=== PATIENT | female | born 1985 | race Caucasian/White ===

== ENCOUNTER 2019-03-29 05:00 | Inpatient (IN) | payer OTHER ==
[2019-03-29] MEDS ORDERED: ELECTROLYTE-148 SOLN 500 ML IV ONE (05:30)
[2019-03-29] MEDS: ELECTROLYTE-148 SOLN 1,000 ML IV SCH (06:00)
[2019-03-29 06:22] VITALS: BMI 26.0
[2019-03-29] MEDS ORDERED: CITRIC ACID/SODIUM CITRATE 30 ML UNIT-DOSE CUP PO ONE (06:45)
--- NOTE | 2019-03-29 07:44 | HP ---
Past Medical History - Primary Care Physician PCP:: Anny Parish - Admission Chief Complaint: 34yo P0 @ 39.3 wks with IVF , declines IOL, for elective C/section; normal FM, no VB, no LOF, no contructions. History of Present Illness: 1. Late transfer of care from [place] - all PNL available, normal 2. GBS negative History Source: Patient, Significant Other Limitations to Obtaining History: No Limitations - Past Medical History Reproductive: Yes: Other (Infertility, multiple IVF cycles) ...: 1 ...Para: 0 ...Term: 0 ...: 0 ...Spon : 0 ...Induced : 0 ...Multiple Gestation: 0 ... Weeks Gestation by Dates: 39.3 ...EDC by Dates: 04/02/19 - Past Surgical History Past Surgical History: Yes: None Hx Myomectomy: No Hx Transabdominal Cerclage: No - Smoking History Smoking history: Never smoked Have you smoked in the past 12 months: No - Alcohol/Substance Use Hx Alcohol Use: No - Social History Usual Living Arrangement: Yes: With Spouse Do you think of yourself as: Straight/Heterosexual Home Medications - Allergies Allergies/Adverse Reactions: Allergies Allergy/AdvReac Type Severity Reaction Status Date / Time No Known Allergies Allergy Verified 03/29/19 05:48 - Home Medications Home Medications: Ambulatory Orders Vitamins (Sjr) - 1 tab PO DAILY 03/29/19 Review of Systems - Review of Systems Constitutional: reports: No Symptoms Eyes: reports: No Symptoms HENT: reports: No Symptoms Neck: reports: No Symptoms Cardiovascular: reports: No Symptoms Respiratory: reports: No Symptoms Gastrointestinal: reports: No Symptoms Genitourinary: reports: No Symptoms Breasts: reports: No Symptoms Reported Musculoskeletal: reports: No Symptoms Integumentary: reports: No Symptoms Neurological: reports: No Symptoms Endocrine: reports: No Symptoms Hematology/Lymphatic: reports: No Symptoms Psychiatric: reports: No Symptoms Pain Intensity: 0 Physical Exam - Maternity Vital Signs: Vital Signs Temperature 97.9 F 03/29/19 06:00 Pulse Rate 96 H 03/29/19 06:00 Respiratory Rate 20 03/29/19 06:00 Blood Pressure 128/77 03/29/19 06:00 O2 Sat by Pulse Oximetry (%) Constitutional: Yes: Well Nourished, No Distress, Calm Eyes: Yes: WNL, Conjunctiva Clear, EOM Intact HENT: Yes: WNL, Atraumatic, Normocephalic Neck: Yes: WNL, Supple, Trachea Midline Cardiovascular: Yes: WNL, Regular Rate and Rhythm Lungs: Clear to auscultation Breast(s): Yes: WNL - Abdominal Exam/OB Fundal Height: 39 Number of Fetuses: Single Presentation: Vertex Contractions: No Monitor Mode: External Heart Rate (range): 140s Heart Rate Location: Midline Category: I Accelerations: Uniform Decelerations: None - Vaginal Exam/OB Vaginal Bleediing: No Speculum Exam: No Dilatation (cm): closed Effacement (%): long Amniotic Membrane Status: Intact Presentation: Vertex/Position Station: -3 - Physical Exam Musculoskeletal: Yes: WNL Extremities: Yes: WNL Edema: No Integumentary: Yes: WNL Deep Tendon Reflex Grade: Normal +2 ...Motor Strength: WNL Psychiatric: Yes: WNL, Alert, Oriented Assessment/Plan 34yo P0 @39.3weeks, IVF not in labor declines IOL for Elective LST c/section All risks, benefits and alternatives discussed with patient Admit to L&D NPO, IVF Anesthesia and Neonatalogy informed
[2019-03-29] MEDS ORDERED: morphine SULFATE/PF 0.5 MG/ML (2cc Syringe - QUVA) ONE (07:46)
[2019-03-29] MEDS ORDERED: OXYTOCIN 10 UNITS/ML VIAL ONE ×2 (08:25→08:41)
[2019-03-29] MEDS ORDERED: PROPOFOL 20 ML ONE (08:26)
[2019-03-29] MEDS ORDERED: LIDOCAINE HCL 1% PRESERVATIVE FREE - 30ML VIAL ONE (08:26)
[2019-03-29] MEDS ORDERED: SUCCINYLCHOLINE CHLORIDE 200 MG/10 ML SYRINGE ONE (08:26)
[2019-03-29] MEDS ORDERED: MIDAZOLAM HCL 2 MG/2 ML SINGLE DOSE VIAL ONE (08:30)
[2019-03-29] MEDS ORDERED: KETAMINE HCL 500 MG/10 ML VIAL ONE (08:30)
--- NOTE | 2019-03-29 09:41 | OP ---
Operative Note - Note: Operative Date: 03/29/19 Pre-Operative Diagnosis: 34yo P0 @ 39.3wks. IVF . Elective c/ section. Declined IOL Operation: Primary LST c/section Findings: Viable Male APGARs 8/9, 8.13lb Normal bilateral tubes and ovaries Post-Operative Diagnosis: Same as Pre-op Surgeon: Anny Parish Associate Java Developer: Sg Mcnamara Anesthesiologist/SEVERITY OF ILLNESS COORDINATOR: April Balbuena Anesthesia: General, Spinal Estimated Blood Loss (mls): 700 Drains, Volume Out (mls): 200 Fluid Volume Replaced (mls): 1,500 Operative Report Dictated: Yes
[2019-03-29] MEDS ORDERED: diphenhydrAMINE HCL 25 MG CAPSULE (FP) PO PRN (09:43)
[2019-03-29] MEDS ORDERED: WITCH HAZEL 50% (TUCKS) 40 PAD/JAR PAD TP PRN (09:43)
[2019-03-29] MEDS ORDERED: BENZOCAINE 28 GM HEMORRHOIDAL OINTMENT PR PRN (09:43)
[2019-03-29] MEDS ORDERED: BENZOCAINE 20% 57 GM BOTTLE TP PRN (09:43)
[2019-03-29] MEDS ORDERED: oxyCODONE HCL 5 MG TABLET PO PRN ×2 (09:43)
[2019-03-29] MEDS ORDERED: IBUPROFEN 800 MG/8 ML IJ IVPB PRN (09:43)
[2019-03-29] MEDS ORDERED: METHYLERGONOVINE MALEATE 0.2 MG/1 ML AMP IM PRN (09:43)
[2019-03-29] MEDS ORDERED: SIMETHICONE 80 MG TAB.CHEW (FP) PO PRN (09:43)
--- NOTE | 2019-03-29 09:43 | PN ---
Delivery - Delivery Section: Primary Type of Anesthesia: Spinal, General Episiotomy/Laceration: None EBL (cc): 700 Delivery, Single - Stages of Labor Date of Delivery: 03/29/19 Time of Delivery: 08:40 Date Placenta Delivered: 03/29/19 Time Placenta Delivered: :41 Placenta: Yes: Expressed - Condition of Infant Glass Block Bender/Learning Development Specialist Present: Yes Name: Melvin Claros Gender: Male Weight: 8 lb 13 oz Position: Right, OT Total Hours ROM (Hrs/Mins): 5min - 1 Minute Total Score: 8 5 Minutes Total Score: 9 - [place] Feeding Plan Initial Plan: Exclusive throughout hospitalization Remarks - Remarks Remarks: Vaccuum used x 1 application to assist head delivery Shoulders delivered without difficulty Placenta expressed intact All layers closed without difficulty
[2019-03-29] MEDS ORDERED: OXYTOCIN 20 UNITS in 0.9% NS 20 UNIT/1,000 ML INFUS.BAG IV SCH (09:45)
[2019-03-29] MEDS ORDERED: IBUPROFEN 800 MG/8 ML IJ IVPB ONE (10:34)
[2019-03-29] MEDS ORDERED: ONDANSETRON 4 MG/2 ML VIAL ONE (10:40)
[2019-03-29] MEDS: ONDANSETRON 4 MG/2 ML VIAL IVPUSH PRN ×3 (10:40→16:26)
[2019-03-29] MEDS: CEFAZOLIN 1 GM/D5W 1 GM/50 ML BAG IVPB SCH (18:19)
[2019-03-30] MEDS: CEFAZOLIN 1 GM/D5W 1 GM/50 ML BAG IVPB SCH (01:23)
[2019-03-30] MEDS: DEXTROSE 5%-LACTATED RINGERS 1,000 ML IV SCH ×2 (01:24→22:45)
[2019-03-30] MEDS: IBUPROFEN 600 MG TABLET (FP) PO PRN ×2 (06:29→18:29)
[2019-03-30 08:07] LABS: BASO % 0.6 % (0-2.0); EOS % 0.3 % (0-4.5); HEMATOCRIT 28.2 % (32.4-45.2); HEMOGLOBIN 8.7 GM/dL (10.7-15.3); LYMPH % 13.9 % (8-40); MCH 22.4 pg (25.7-33.7); MCHC 30.9 g/dl (32.0-36.0); MEAN CELL VOLUME 72.4 fl (80-96); MEAN PLT VOLUME 9.1 fl (7.5-11.1); MONO % 6.6 % (3.8-10.2); NEUT % 78.6 % (42.8-82.8); PLATELET COUNT 290 K/MM3 (134-434); RBC 3.89 M/mm3 (3.60-5.2); RDW 15.2 % (11.6-15.6); WHITE BLOOD COUNT 14.1 K/mm3 (4.0-10.0)
--- NOTE | 2019-03-30 08:49 | PN ---
Progress Note (short form) - Note Progress Note: 34 F s/p spinal + Duramorph for C/S. pt feels welll. no comps. good result of anesthetic care.
[2019-03-30] MEDS ORDERED: BISACODYL 10 MG SUPP.RECT RC PRN (09:43)
--- NOTE | 2019-03-30 21:43 | PN ---
Post Progress Note - Subjective Subjective: Patient without acute complaints. Reports tolerating oral intake without nausea or vomiting. Ambulating without dizziness. Denies fevers or chills. Pain well controlled with oral pain medication. with supplementation Passing flatus. Post Day: 1 Type of Delivery: Primary C/S Vital Signs: Vital Signs Temperature 98.5 F 03/30/19 08:50 Pulse Rate 84 03/30/19 08:50 Respiratory Rate 18 03/30/19 10:00 Blood Pressure 112/68 03/30/19 08:50 O2 Sat by Pulse Oximetry (%) 100 03/29/19 11:00 Breast Exam: Yes: Soft Uterus: Yes: Fundus Firm, Fundus below umbilicus Incision: Yes: Sutures intact. No: Redness, Oozing Abdomen/GI: Yes: Abdomen soft, Abdominal Distention (mild soft), Tender (mild incisional), Passing flatus, Tolerating PO Lochia: Yes: Rubra Lochia, amount: Small Extremities: Yes: Calves non-tender, Edema (trace) Activity: Ambulating - Labs Labs: CBC WBC 14.1 K/mm3 (4.0-10.0) H 03/30/19 06:58 RBC 3.89 M/mm3 (3.60-5.2) 03/30/19 06:58 Hgb 8.7 GM/dL (10.7-15.3) L 03/30/19 06:58 Hct 28.2 % (32.4-45.2) L D 03/30/19 06:58 MCV 72.4 fl (80-96) L 03/30/19 06:58 MCH 22.4 pg (25.7-33.7) L 03/30/19 06:58 MCHC 30.9 g/dl (32.0-36.0) L 03/30/19 06:58 RDW 15.2 % (11.6-15.6) 03/30/19 06:58 Plt Count 290 K/MM3 (134-434) 03/30/19 06:58 MPV 9.1 fl (7.5-11.1) 03/30/19 06:58 Absolute Neuts (auto) 11.1 K/mm3 (1.5-8.0) H 03/30/19 06:58 Neutrophils % 78.6 % (42.8-82.8) 03/30/19 06:58 Lymphocytes % 13.9 % (8-40) D 03/30/19 06:58 Monocytes % 6.6 % (3.8-10.2) 03/30/19 06:58 Eosinophils % 0.3 % (0-4.5) 03/30/19 06:58 Basophils % 0.6 % (0-2.0) 03/30/19 06:58 Nucleated RBC % 0 % (0-0) 03/30/19 06:58 Assessment/Plan 34 yo POD # 1 s/p primary CD, afebrile, vital signs stable, doing well 1. Continue routine postoperative care. 2. CBC with mild asymptomatic anemia, iron started, precautions given 3. Rh positive status, no rhogam indicated. 4. Encourage ambulation and incentive spirometer use 5. Continue oral pain medication 6. support given 7. Anticipate discharge home postoperative day #3 or #4
[2019-03-30] MEDS: ELECTROLYTE-148 SOLN 1,000 ML IV SCH ×2 (22:45)
--- NOTE | 2019-03-31 07:14 | PN ---
Post Progress Note - Subjective Subjective: Patient without acute complaints. Reports tolerating oral intake without nausea or vomiting. Ambulating without dizziness. Denies fevers or chills. Pain well controlled with oral pain medication. Passing flatus. Post Day: 2 Type of Delivery: Primary C/S Vital Signs: Vital Signs Temperature 98.4 F 03/30/19 22:00 Pulse Rate 81 03/30/19 22:00 Respiratory Rate 18 03/30/19 22:00 Blood Pressure 111/58 L 03/30/19 22:00 O2 Sat by Pulse Oximetry (%) 100 03/29/19 11:00 Breast Exam: Yes: Soft Uterus: Yes: Fundus Firm Incision: Yes: Sutures intact. No: Redness, Oozing Abdomen/GI: Yes: Abdomen soft, Tender (mild incisional), Passing flatus, Tolerating PO. No: Abdominal Distention Lochia: Yes: Rubra Lochia, amount: Moderate Extremities: Yes: Calves non-tender. No: Edema Activity: Ambulating - Labs Labs: CBC WBC 14.1 K/mm3 (4.0-10.0) H 03/30/19 06:58 RBC 3.89 M/mm3 (3.60-5.2) 03/30/19 06:58 Hgb 8.7 GM/dL (10.7-15.3) L 03/30/19 06:58 Hct 28.2 % (32.4-45.2) L D 03/30/19 06:58 MCV 72.4 fl (80-96) L 03/30/19 06:58 MCH 22.4 pg (25.7-33.7) L 03/30/19 06:58 MCHC 30.9 g/dl (32.0-36.0) L 03/30/19 06:58 RDW 15.2 % (11.6-15.6) 03/30/19 06:58 Plt Count 290 K/MM3 (134-434) 03/30/19 06:58 MPV 9.1 fl (7.5-11.1) 03/30/19 06:58 Absolute Neuts (auto) 11.1 K/mm3 (1.5-8.0) H 03/30/19 06:58 Neutrophils % 78.6 % (42.8-82.8) 03/30/19 06:58 Lymphocytes % 13.9 % (8-40) D 03/30/19 06:58 Monocytes % 6.6 % (3.8-10.2) 03/30/19 06:58 Eosinophils % 0.3 % (0-4.5) 03/30/19 06:58 Basophils % 0.6 % (0-2.0) 03/30/19 06:58 Nucleated RBC % 0 % (0-0) 03/30/19 06:58 Assessment/Plan 34 yo POD # 1 s/p primary CD, afebrile, vital signs stable, doing well 1. Continue routine postoperative care. 2. Encourage ambulation and incentive spirometer use 3. Continue oral pain medication 4. Anticipate discharge home postoperative day #3 or #4
[2019-03-31] MEDS: FERROUS SO4 325 MG TABLET (FP) PO SCH ×2 (08:07→17:22)
[2019-03-31] MEDS ORDERED: ACETAMINOPHEN 325 MG TABLET (FP) PO PRN (12:22)
[2019-03-31] MEDS ORDERED: SENNOSIDES/DOCUSATE COMBO (SENNA PLUS) TABLET (UD) PO PRN (22:00)
[2019-04-01 08:07] LABS: BASO % 1.3 % (0-2.0); EOS % 3.1 % (0-4.5); HEMATOCRIT 25.8 % (32.4-45.2); HEMOGLOBIN 8.4 GM/dL (10.7-15.3); LYMPH % 22.5 % (8-40); MCH 23.3 pg (25.7-33.7); MCHC 32.4 g/dl (32.0-36.0); MEAN CELL VOLUME 71.8 fl (80-96); MEAN PLT VOLUME 8.1 fl (7.5-11.1); NEUT % 65.1 % (42.8-82.8); PLATELET COUNT 350 K/MM3 (134-434); RDW 15.6 % (11.6-15.6); WHITE BLOOD COUNT 10.6 K/mm3 (4.0-10.0)
[2019-04-01] MEDS: FERROUS SO4 325 MG TABLET (FP) PO SCH ×2 (09:01→18:05)
[2019-04-01 10:30] VITALS: BP 125/72; PULSE 85; TEMP 98.1
--- NOTE | 2019-04-01 15:03 | DS ---
Physical Exam-SENIOR PHP SOFTWARE DEVELOPER Vital Signs: Vital Signs Temperature 98.1 F 04/01/19 10:00 Pulse Rate 85 04/01/19 10:00 Respiratory Rate 18 04/01/19 10:00 Blood Pressure 125/72 04/01/19 10:00 O2 Sat by Pulse Oximetry (%) 100 03/29/19 11:00 Labs: CBC, BMP 04/01/19 04:35 Delivery - Delivery Section: Primary Type of Anesthesia: Spinal, General Episiotomy/Laceration: None EBL (cc): 700 Delivery, Single - Stages of Labor Date of Delivery: 03/29/19 Time of Delivery: 08:40 Time Placenta Delivered: 08:41 Placenta: Yes: Expressed - Condition of Infant Carpet Cleaning Technician/Cyberathlete Present: Yes Name: Melvin Claros Infant Gender: Male Weight: 8 lb 13 oz Position: Right, OT Total Hours ROM (Hrs/Mins): 5min - 1 Minute Total Score: 8 5 Minutes Total Score: 9 - Feeding Plan Initial Plan: Exclusive throughout hospitalization Discharge Summary Reason For Visit: ADMIT C/SECTION - Instructions - Home Medications Comprehensive Discharge Medication List: Ambulatory Orders Vitamins (Sjr) - 1 tab PO DAILY 03/29/19
[2019-04-01] MEDS: IBUPROFEN 600 MG TABLET (FP) PO PRN (15:30)
--- NOTE | 2019-04-01 20:58 | OP ---
DATE OF OPERATION: 03/29/2019 PREOPERATIVE DIAGNOSIS: A 34-year-old brought here at 39 and 3 weeks for elective section. POSTOPERATIVE DIAGNOSIS: A 34-year-old brought here at 39 and 3 weeks for elective section. PROCEDURE: Primary low segment transverse section. SURGEON: Anny Parish MD. ANESTHESIOLOGIST: Sg Mcnamara MD. ANESTHESIOLOGIST: April Balbuena MD. DESCRIPTION OF OPERATIVE PROCEDURE: After assuring informed consent, patient was brought to the operating room where spinal anesthesia was administered. Abdomen was prepped and draped in sterile fashion. The anesthesia was not sufficient, so ketamine IV anesthetic needed to be administered. Pfannenstiel skin incision was created with the scalpel, and extended bilaterally with Bovie cautery. Fascia was dissected off the rectus abdominis muscle with the Bovie cautery. Fascia was incised and dissected off the rectus abdominis muscle. The rectus abdominis muscle was split in the midline, peritoneum was identified, tented with Kellys and opened with Metzenbaum scissors with good visualization of underlying organs. Peritoneum was stretched, bladder was retracted with low edge of the [place]. Gutters were packed and Metzenbaum scissors were used to create the bladder flap. Bladder was retracted with the Heavenly retractor. Then a low uterine segment incision was created with the scalpel and extended bilaterally with bandage scissors. 's head was difficult to deliver, so vacuum was applied to the vertex and was baby was delivered atraumatically. Shoulders were delivered without any difficulty. Cord was clamped and cut, and male infant was handed to the waiting pediatricians. Baby was 8 pounds 13 ounces, 21 inches. Placenta was expressed manually and handed for pathology. Uterus was cleared of clots and debris and repaired with 0 Biosyn in running, locking fashion. A 2nd imbricating layer was created with 0 Biosyn. Abdomen was irrigated and cleared of clots and debris. Lap pads were removed. Sponge and instrument count was correct x2. Peritoneum was repaired with 0 Biosyn. Muscle was reapproximated at the midline. Fascia was closed with 0 Vicryl. Subcutaneous tissue was reapproximated, and then skin was closed with 4 Biosyn V-Loc stitch. Excellent hemostasis was achieved. Estimated blood loss was 700 mL. Patient received 1300 mg of IV fluids, and had 200 mL of urine output. Patient tolerated procedure well and was brought to the recovery room in stable condition. Sponge and instrument count was correct x2 . Brian [id number]
--- NOTE | 2019-04-04 12:06 | PATH ---
Surgical Pathology Report Patient Name: ZOFIA BELL Med. Rec. #: [id number] /Age/Gender: 1985 (Age: 34) / F Account: [id number] Location: [facility] OBS/MANAGER NON PROFIT Taken: 03/29/2019 Received: 04/01/2019 Reported: 04/04/2019 Physicians: Anny Parish M.D. Specimen(s) Received PLACENTA Clinical History at 39.3 weeks Final Diagnosis PLACENTA, SECTION: 557 G THIRD TRIMESTER PLACENTA WITH TRIVASCULAR UMBILICAL CORD AND UNREMARKABLE PLACENTAL MEMBRANES. SEE COMMENT. Electronically Signed Haleigh Brown M.D. Gross Description The specimen is received fresh labeled placenta and is a 557 gram, 17.5 x 16.0 x 2.8 cm. placenta with attached membranes and umbilical cord. The attached membranes are richards, translucent with focal opacities and display focal circumarginate insertion. The umbilical cord measures 5.5 cm. in length and averages 1.3 cm. in diameter. The cord inserts eccentrically, 3 cm. to the nearest margin. No true knots or strictures are identified. Cut surface of the umbilical cord reveals 3 vessels. The surface is carter blue with moderate fibrin deposition and appropriate caliber vessels. The maternal surface is red-brown with focal defects. Sectioning reveals red-brown, spongy parenchyma. No lesions are identified. Branch Controller sections are submitted in three cassettes as follows: 1- membrane rolls and umbilical cord; 2-3- full thickness sections of placenta. /04/03/2019 [place]/04/03/2019
== END 2019-04-01 17:45 | disposition home or self-care (01) | DRG 788 ==
LOC: JLDR 05:00 → MERGE 07:30 → J3W 11:57
PROVIDERS: ADMIT Obstetrics & Gynecology; ATTEND Obstetrics & Gynecology
PROC: 10D00Z1 Extraction of Products of Conception, Low, Open Approach (ICD-10-PCS; principal; 2019-03-29)
PROC: 10D07Z6 Extraction of Products of Conception, Vacuum, Via Natural or Artificial Opening (ICD-10-PCS; 2019-03-29)
DX: O34.219 Maternal care for unspecified type scar from previous cesarean delivery (principal); Z3A.39 39 weeks gestation of pregnancy; Z37.0 Single live birth
CPT/HCPCS: 36415; 36600; 82803; 85025; 87340; 87389